=== PATIENT | female | born 1970 | race Hispanic/Latino ===

== ENCOUNTER → 2017-07-06 | Outpatient (CLI) | payer OTHER ==
--- NOTE | 2017-07-13 16:32 | Diagnostic Imaging Report ---
#[id number] - MGSCRBIL #BILATERAL FIRST EVER DIGITAL SCREENING MAMMOGRAM WITH CAD: 07/06/2017 CLINICAL: Routine screening. No prior exams were available for comparison. Current study contains 4 films. The tissue of both breasts is heterogeneously dense. This may lower the sensitivity of mammography. Current study was also evaluated with a Computer Aided Detection (CAD) system. There are benign calcifications in the right breast. No significant masses, calcifications, or other findings are seen in either breast. IMPRESSION: BENIGN There is no mammographic evidence of malignancy. A 1 year screening mammogram is recommended. The patient will be notified by letter of the results. Gopal crawford/renetta:07/13/2017 10:40:52 Securities Settlement Processor: Haily HOUSTON)([place]), [facility] letter sent: Normal Exam Mammogram BI-RADS: 2 Benign
== END ==
LOC: MAMMO 11:19
PROVIDERS: ATTEND Internal Medicine
DX: Z12.31 Encounter for screening mammogram for malignant neoplasm of breast (principal)
CPT/HCPCS: 77067

== ENCOUNTER 2018-07-30 22:44 | Emergency (ER) | payer OTHER ==
[~2018-07-30] VITALS: Ht 162.6 cm; Wt 59.9 kg
--- OUTSIDE RECORDS SUMMARY | 2018-07-30 22:46 | XMS REPORT ---
[facility] Address Unknown Phone Unavailable Care Team Providers Care Machine Setter Name Role Phone HERNAN PATIÑO Unavailable Unavailable Payers Payer Name Policy Type Policy Number Effective Date Expiration Date Problems This patient has no known problems. Allergies, Adverse Reactions, Alerts Allergy Name Allergy Type Status Severity Reaction(s) Onset Date Inactive Date Treating Clinician Comments No Known Allergies DA Active U 2018-05-08 00:00:00 No Known Allergies DA Active U 2014-08-25 00:00:00 Medications This patient has no known medications. Encounters Start Date/Time End Date/Time Encounter Type Admission Type Attending Clinicians Care Facility Care Department Encounter ID 2016-10-16 04:08:00 2016-10-16 04:08:00 Emergency [facility] [id number] 2016-10-16 02:06:57 2016-10-16 02:06:57 Emergency [facility] [id number] 2016-10-15 23:07:25 2016-10-15 23:07:25 Emergency [facility] [id number] Results Test Description Test Time Test Comments Text Results Atomic Results Result Comments - US PELVIS COMPLETE 2018-06-06 15:30:00 Name: MARTINEZ DUMONT [facility] : 1970 Age/S: 47 / F Vaughn Yuany Unit #: [id number] Loc: [place] [address] Phys: Reina South MD Acct: [id number] Dis Date: Status: REG CLI PHONE #: [phone] Exam Date: 06/06/20181515 FAX #: [phone] Reason: R10.2 EXAMS: CPT CODE: [id number] US PELVIS COMPLETE [id number] REASON FOR EXAM: EXAM ORDER DATE: 06/06/2018 2:03 PM Attending Vamshi: Reina South MD PROCEDURE: - US TRANSVAGINAL NON OB, - US PELVIS COMPLETE FINDINGS: The transabdominal ultrasound shows the uterus measured 7.4 x 3.4 cm. The ovaries were not seen on the transabdominal exam. No evidence of free fluid or adnexal mass on the transabdominal exam. The transvaginal ultrasound shows the endometrial stripe measured 0.5 cm. The right ovary measured 1.8 x 1.1 cm. The left ovary was not seen. Unremarkable ovarian flow is seen. Duplex scans of the ovarian arteries were performed. Guajardo scale images were supplemented with color-flow Doppler. Doppler flow velocity analysis (duplex Doppler) was performed. No fluid seen in the cul-de-sac. No evidence of IUP. IMPRESSION: 1.4 x 1.1 cm hypoechoic and hypervascular mass in the cervix. Recommend additional correlation with MRI with IV contrast. at 1530 Reported and signed by: Melchor Velásquez M.D. CC: Reina South MD Technologist: HU TORRES RT(R),[facility] Trnscb Date/Time: 06/06/2018 (1530) t.[email or web address] Orig Print D/T: S: 06/06/2018 (8743) Probe: PAGE 1 Signed Report - US TRANSVAGINAL NON OB 2018-06-06 15:30:00 Name: MARTINEZ DUMONT [facility] : 1970 Age/S: 47 / F [address] [facility] Unit #: [id number] Loc: [place] [address] Phys: Reina South MD Acct: [id number] Dis Date: Status: REG CLI PHONE #: [phone] Exam Date: 06/06/20181515 FAX #: [phone] Reason: EXAMS: CPT CODE: [id number] [place] [address] REASON FOR EXAM: EXAM ORDER DATE: 06/06/2018 2:03 PM Attending Vamshi: Reina South MD PROCEDURE: - US TRANSVAGINAL NON OB, - US PELVIS COMPLETE FINDINGS: The transabdominal ultrasound shows the uterus measured 7.4 x 3.4 cm. The ovaries were not seen on the transabdominal exam. No evidence of free fluid or adnexal mass on the transabdominal exam. The transvaginal ultrasound shows the endometrial stripe measured 0.5 cm. The right ovary measured 1.8 x 1.1 cm. The left ovary was not seen. Unremarkable ovarian flow is seen. Duplex scans of the ovarian arteries were performed. Guajardo scale images were supplemented with color-flow Doppler. Doppler flow velocity analysis (duplex Doppler) was performed. No fluid seen in the cul-de-sac. No evidence of IUP. IMPRESSION: 1.4 x 1.1 cm hypoechoic and hypervascular mass in the cervix. Recommend additional correlation with MRI with IV contrast. at 1530 Reported and signed by: Melchor Velásquez M.D. CC: Reina South MD Technologist: HU TORRES RT(R),RDTN Trnscb Date/Time: 06/06/2018 (1530) IvoryL Orig Print D/T: S: 06/06/2018 (1533) Probe: [id number] PAGE 1 Signed Report - XR KNEE 1 OR 2 [facility] 2018-05-09 00:30:00 FAX: Coral Saldana NP [place]: St: PRE Name: MARTINEZ DUMONT [facility] : 1970 Age/S: 47/F [address] [facility] Unit #: [id number] Loc: [place] [facility] [place] [address] Phys: Coral Saldana NP Acct: [id number] Dis Date: Status: PRE ER PHONE #: [phone] Exam Date: 05/08/2018 0012 FAX #: [phone] Reason: pain sp fall EXAMS: CPT CODE: [id number] XR KNEE 1 [place] 2 [place] [address] - XR ELBOW 2 VIEWS RT, - XR WRIST 3 + V RT, - XR FOREARM 2 VIEWS RT, - XR KNEE 1 OR 2 V BI, 05/08/2018 11:36 PM Reason For Examination: pain sp fall Comparison: None available Location: R16: Findings: No evidence of acute fracture or dislocation of the right elbow, right wrist, right forearm or left knee. No knee joint effusion is visualized. No posterior joint effusion is seen behind the elbow.. No radiopaque foreign body. Impression: No plain film evidence of acute fracture or dislocation of the right wrist, forearm or elbow or left knee at 0030 Reported and signed by: Angelica Nuñez M.D. CC: Coral Saldana NP Technologist: Ysabel Ferrellrd Date/Time/By: 05/09/2018 (0030) : By: [email or web address] Orig Print D/T: S: 05/09/2018 (0034) PAGE 1 Signed Report - XR FOREARM 2 VIEWS RT 2018-05-09 00:30:00 FAX: Coral Saldana NP [place]: St: PRE Name: MARTINEZ DUMONT [facility] : 1970 Age/S: 47/F Vaughn Gallagherncer Ricarda Unit #: [id number] Loc: [place] [address] Phys: Coral Saldana COSTING ANALYST Acct: [id number] Dis Date: Status: PRE ER PHONE #: [phone] Exam Date: 05/08/201811 FAX #: [phone] Reason: pain sp fall EXAMS: CPT CODE: [id number] XR FOREARM [address] [place] [address] - XR ELBOW 2 VIEWS RT, - XR WRIST 3 + V RT, - XR FOREARM 2 VIEWS RT, - XR KNEE 1 OR 2 V BI, 05/08/2018 11:36 PM Reason For Examination: pain sp fall Comparison: None available Location: R16: Findings: No evidence of acute fracture or dislocation of the right elbow, right wrist, right forearm or left knee. No knee joint effusion is visualized. No posterior joint effusion is seen behind the elbow.. No radiopaque foreign body. Impression: No plain film evidence of acute fracture or dislocation of the right wrist, forearm or elbow or left knee at 0030 Reported and signed by: Angelica Nuñez M.D. CC: Coral Saldana NP Technologist: [facility]sabel [facility] Date/Time/By: 05/09/2018 (0030) : By: [email or web address] Orig Print D/T: S: 05/09/2018 (0034) PAGE 1 Signed Report - XR WRIST 3 + V RT 2018-05-09 00:30:00 FAX: Coral Saldana NP [place]: St: PRE Name: [facility] 1970 Age/S: 47/F Vaughn Yuanmary ann Unit #: [id number] [place] [address] Phys: Coral Saldana NP Acct: [id number] Dis Date: Status: PRE ER PHONE #: [phone] Exam Date: 05/08/201811 FAX #: [phone] Reason: pain sp fall EXAMS: CPT CODE: [id number] XR WRIST 3 + [place] RT [address] - XR ELBOW 2 VIEWS RT, - XR WRIST 3 + V RT, - XR FOREARM 2 VIEWS RT, - XR KNEE 1 OR 2 V BI, 05/08/2018 11:36 PM Reason For Examination: pain sp fall Comparison: None available Location: R16: Findings: No evidence of acute fracture or dislocation of the right elbow, right wrist, right forearm or left knee. No knee joint effusion is visualized. No posterior joint effusion is seen behind the elbow.. No radiopaque foreign body. Impression: No plain film evidence of acute fracture or dislocation of the right wrist, forearm or elbow or left knee at 0030 Reported and signed by: Angelica Nuñez M.D. CC: Coral Saldana NP Technologist: Ysabel Menon [facility] Date/Time/By: 05/09/2018 (0030) : By: [email or web address] Orig Print D/T: S: 05/09/2018 (0034) PAGE 1 Signed Report - XR ELBOW 2 VIEWS RT 2018-05-09 00:30:00 FAX: Coral Saldana NP [place]: St: PRE Name: MARTINEZ DUMONT [facility] : 1970 Age/S: 47/F Vaughn Rene mary ann Unit #: [id number] Loc: [place] [address] Phys: Coral Saldana NP Acct: [id number] Dis Date: Status: PRE ER PHONE #: [phone] Exam Date: 05/08/201811 FAX #: [phone] Reason: pain sp fall EXAMS: CPT CODE: [id number] XR ELBOW [address] [place] [address] - XR ELBOW 2 VIEWS RT, - XR WRIST 3 + V RT, - XR FOREARM 2 VIEWS RT, - XR KNEE 1 OR 2 V BI, 05/08/2018 11:36 PM Reason For Examination: pain sp fall Comparison: None available Location: R16: Findings: No evidence of acute fracture or dislocation of the right elbow, right wrist, right forearm or left knee. No knee joint effusion is visualized. No posterior joint effusion is seen behind the elbow.. No radiopaque foreign body. Impression: No plain film evidence of acute fracture or dislocation of the right wrist, forearm or elbow or left knee at 0030 Reported and signed by: Angelica Nueñz M.D. CC: Coral Saldana NP Technologist: Ysabel Menon [employer] Date/Time/By: 05/09/2018 (0030) : By: [email or web address] Orig Print D/T: S: 05/09/2018 (0034) PAGE 1 Signed Report MAMMOGRAPHY DIGITAL SCR BILAT [place] [address] Patient Name: MARTINEZ DUMONT MR #: [id number] : 1970 Age/Sex: 46/F Req #: [id number] Adm Physician: Ordered by: HERNAN PATIÑO MD Report #: [id number] Location: [facility] Room/Bed: Procedure: [id number] MG/MAMMOGRAPHY DIGITAL SCR BILAT Exam Date: 07/06/17 Exam Time: 1133 REPORT STATUS: Signed #[id number] - MGSCRBIL #BILATERAL FIRST EVER DIGITAL SCREENING MAMMOGRAM WITH CAD: 07/06/2017 CLINICAL: Routine screening. No prior exams were available for comparison. Current study contains 4 films. The tissue of both breasts is heterogeneously dense. This may lower the sensitivity of mammography. Current study was also evaluated with a Computer Aided Detection (CAD) system. There are benign calcifications in the right breast. No significant masses, calcifications, or other findings are seen in either breast. IMPRESSION: BENIGN There is no mammographic evidence of malignancy. A 1 year screening mammogram is recommended. The patient will be notified by letter of the results. Gopal crawford/renetta:07/13/2017 10:40:52 Early Breastfeeding Care Specialist: Haily RIOJAS(R)(M), [facility] letter sent: Normal Exam Mammogram BI-RADS: 2 Benign Dictated By: GOPAL ROBERT DO 1040 Transcribed By: RENETTA on 07/13/17 1040 COPY TO: HERNAN PATIÑO MD
[2018-07-30 23:24] LABS: BASOPHILS % 0.3 % (0.0-1.0); EOSINOPHILS # (AUTO) 0.2 (0.0-0.4); EOSINOPHILS % 1.2 % (0.0-6.0); HEMATOCRIT 38.1 % (34.2-44.1); HEMOGLOBIN 12.4 g/dL (12.0-16.0); LYMPHOCYTES # (AUTO) 3.7 (1.0-3.2); LYMPHOCYTES % 30.4 % (18.0-39.1); MEAN CORPUSCULAR HEMOGLOBIN 27.3 pg (28-32); MEAN CORPUSCULAR HGB CONC 32.5 g/dL (31-35); MEAN CORPUSCULAR VOLUME 83.7 fL (81-99); MONOCYTES # (AUTO) 0.6 (0.2-0.8); MONOCYTES % 5.3 % (4.4-11.3); NEUTROPHILS # (AUTO) 7.6 (2.1-6.9); NEUTROPHILS % 62.6 % (38.7-80.0); PLATELET COUNT 302 x10e3/uL (140-360); RED BLOOD COUNT 4.55 x10e6/uL (3.6-5.1); RED CELL DISTRIBUTION WIDTH 13.4 % (11.7-14.4)
[2018-07-30] MEDS ORDERED: KETOROLAC TROMETHAMINE 60 MG/2 ML VIAL IM ONE (23:30)
[2018-07-30] MEDS ORDERED: ONDANSETRON HCL 4 MG ORAL DISINTEGRATING TAB ONE (23:35)
[2018-07-30 23:39] LABS: ALANINE AMINOTRANSFERASE 15 IU/L (0-55); ALBUMIN 3.8 g/dL (3.5-5.0); ALBUMIN/GLOBULIN RATIO 1.1 (0.8-2.0); ALKALINE PHOSPHATASE 80 IU/L (40-150); ANION GAP 14.7 mmol/L (8-16); BLOOD UREA NITROGEN 6 mg/dL (7-26); BUN/CREATININE RATIO 8 (6-25); CALCIUM 9.8 mg/dL (8.4-10.2); CARBON DIOXIDE 21 mmol/L (22-29); CHLORIDE 99 mmol/L (98-107); CREATININE, SERUM 0.73 mg/dL (0.57-1.11); EST GLOMERULAR FILTRATION RATE > 60 ML/MIN (60-); GLUCOSE 158 mg/dL (74-118); LIPASE 11 U/L (8-78); POTASSIUM 3.7 mmol/L (3.5-5.1); SODIUM 131 mmol/L (136-145)
[2018-07-30] MEDS ORDERED: ONDANSETRON HCL 4 MG ORAL DISINTEGRATING TAB PO ONE (23:45)
[2018-07-31] MEDS ORDERED: SODIUM CHLORIDE 0.9% 50ML 50 ML ONE (00:20)
[2018-07-31] MEDS ORDERED: IOPAMIDOL 370 MG/ML 200 ML INFUS..BTL INJ ONE (00:21)
[2018-07-31 00:38] LABS: CLARITY,URINE CLEAR (CLEAR); COLOR,URINE YELLOW (YELLOW); LEUKOCYTE ESTERASE ,URINE NEGATIVE (NEGATIVE); NITRITE,URINE NEGATIVE (NEGATIVE); PROTEIN,URINE DIPSTICK NEGATIVE (NEGATIVE)
[2018-07-31 00:39] LABS: BILIRUBIN,URINE NEGATIVE (NEGATIVE); KETONES,URINE NEGATIVE (NEGATIVE); URINE UROBILINOGEN 0.2 mg/dL (0.2 - 1)
[2018-07-31 00:45] LABS: BACTERIA,URINE FEW /HPF; EPITHELIAL CELLS,URINE FEW /LPF; TRANSITIONAL EPI CELLS,URINE FEW; WBC,URINE (MAN) 21-50 /HPF (0-5)
--- NOTE | 2018-07-31 02:18 | Diagnostic Imaging Report ---
EXAM: CT Abdomen and Pelvis WITH contrast INDICATION: ^ruq pain ^[id number] ^0035 COMPARISON: None. TECHNIQUE: Abdomen and pelvis were scanned utilizing a multidetector helical scanner from the lung base to the pubic symphysis after administration of IV contrast. Coronal and sagittal reformations were obtained. Dose modulation, iterative reconstruction, and/or weight based adjustment of the mA/kV was utilized to reduce the radiation dose to as low as reasonably achievable. Routine protocol was performed. Scan was performed when during portal venous phase. IV CONTRAST: 100 mL of Isovue-370 ORAL CONTRAST: Water COMPLICATIONS: None RADIATION DOSE: Total DLP: 202.3 mGy*cm Estimated effective dose: (DLP x 0.015 x size factor) mSv CTDIvol has been reviewed. It is below the limits set by the Radiation Protocol Committee (RPC). FINDINGS: LINES and TUBES: None. LOWER THORAX: Unremarkable HEPATOBILIARY: No focal hepatic lesions. No biliary ductal dilation. GALLBLADDER: No radio-opaque stones or sludge. No wall thickening. SPLEEN: No splenomegaly. PANCREAS: No focal masses or ductal dilatation. ADRENALS: No adrenal nodules KIDNEYS/URETERS: Kidneys enhance symmetrically. No hydronephrosis. No cystic or solid mass lesions. No stones. Bilateral areas of superior pole cortical thinning/scarring. GI TRACT: No abnormal distention, wall thickening, or evidence of bowel obstruction. Appendix is normal. PELVIC ORGANS/BLADDER: Unremarkable. LYMPH NODES: No lymphadenopathy. VESSELS: There is mild atherosclerotic disease in the aorta and major arterial branches. PERITONEUM / RETROPERITONEUM: No free air or fluid. BONES: L5-S1 degenerative changes. SOFT TISSUES: Unremarkable. IMPRESSION: No evidence of acute inflammatory process in the abdomen/pelvis. Signed by: Dr. Fahad Belcher MD on 07/31/2018 2:14 AM
== END 2018-07-31 02:40 | disposition home or self-care (01) ==
LOC: ER 22:44
DX: K80.70 Calculus of gallbladder and bile duct without cholecystitis without obstruction (principal)
CPT/HCPCS: 36415; 74177; 80053; 81001; 83690; 85025; 96372; 99284; J1885; Q0162; Q9967

== ENCOUNTER → 2022-06-07 | Day surgery (SDC) | payer OTHER ==
[~2022-06-07] MED LIST: ASPIRIN EC81 MG PO; ATORVASTATIN CA20 MG PO; BUPIVACAINE 0.5%/EPI 30 ML SDV INJ ONE; CALCIUM ACETAT667 MG PO; CEFAZOLIN SODIUM 2 GM ONE; CENTRUM ADULTS1 EACH PO; DEXAMETHASONE SOD PHOS INJ 4 MG/ML SDV ONE; FENTANYL CITRATE/PF 100MCG/2 ML INJ ONE; KETOROLAC TROMETHAMINE 30 MG/ML VIAL ONE; LIDOCAINE HCL 2% LOCAL INJ 5 ML SDV VIAL INJ ONE; LOSARTAN POTASS25 MG PO; MELOXICAM7.5 MG PO; METFORMIN HCL500 MG PO; MIDAZOLAM HCL 2 MG/2 ML VIAL ONE; ONDANSETRON HCL INJ 2MG/ML 2ML 2 MG/ML VIAL ONE; POVIDONE IODINE 0.05% 0.05 % ML PO ONE; PROPOFOL IV EMULSION 10 MG/ML 20 ML VIAL ONE; SEVOFLURANE INHAL SOLN 250 ML PEN BTL ONE
[2022-06-07 07:21] LABS: CREATININE, SERUM 0.69 mg/dL (0.57-1.11)
[2022-06-07 13:23] VITALS: BP 111/73
== END | disposition home or self-care (01) ==
LOC: OR 05:40
PROVIDERS: ATTEND Specialist
DX: S83.221A Peripheral tear of medial meniscus, current injury, right knee, initial encounter (principal); M17.11 Unilateral primary osteoarthritis, right knee; M22.41 Chondromalacia patellae, right knee; E11.9 Type 2 diabetes mellitus without complications; I10 Essential (primary) hypertension; E78.5 Hyperlipidemia, unspecified; F17.210 Nicotine dependence, cigarettes, uncomplicated; X58.XXXA Exposure to other specified factors, initial encounter; Z01.818 Encounter for other preprocedural examination; Z79.82 Long term (current) use of aspirin; Z79.84 Long term (current) use of oral hypoglycemic drugs; Z79.899 Other long term (current) drug therapy
CPT/HCPCS: 29881; 36415; 71046; 80048; 82948; 93005; J1100; J1885; J2001; J2250; J2405; J2704; J3010